=== PATIENT | female | born 1985 | race Caucasian/White ===

== ENCOUNTER 2023-12-07 13:26 | Emergency (ER) | payer OTHER, SELFPAY ==
[2023-12-07] VITALS (7 sets, daily range): BP systolic 108–127; BP diastolic 72–92; PULSE 66–83; RESP 12–18; TEMP 36.2; O2SAT 95–99; BMI 35.0
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
--- OUTSIDE RECORDS SUMMARY | 2023-12-07 14:35 | XMS_ITS | Clinical Summary ---
Author Name Unknown Organization [employer] [facility] Address [place], [place] [address] Care Team Providers Care Top Installer Name Role Phone Chantal Champagne MD Primary Care Provider Allergies No known active allergies Medications No known medications Active Problems Problem Noted Date Diagnosed Date Infertility counseling 03/25/2016 Comments Yes Family History Medical History Relation Name Comments Cancer-breast No Family History Cancer-colon No Family History Cancer-ovarian No Family History Diabetes No Family History Hyperlipidemia No Family History Hypertension No Family History Social History Tobacco Use Types Packs/Day Years Used Date Smoking Tobacco: Never Smokeless Tobacco: Never Tobacco Cessation:Counseling Given: Yes Alcohol Use Standard Drinks/Week Comments No 0 (1 standard drink = 0.6 oz pur e alcohol) Comments Yes Sex and Gender Information Value Date Recorded Sex Assigned at Not on file Gender Identity Not on file Sexual Orientation Not on file Obstetrics History Para Term AB IAB SAB Ectopic Multiple Livin g Live Births 1 Date Outcome GA Total Labor Labor/2nd/3rd Weight Sex Delivery Anes PTL Tammie A1 A5 Name Cl in Current Last Filed Vital Signs Vital Sign Reading Time Taken Comments Blood Pressure 108/66 05/23/2016 5:33 PM CDT Pulse 63 05/23/2016 5:33 PM CDT Temperature 36.8 ??C (98.3 ??F) 05/23/2016 5:33 PM CD T Respiratory Rate - - Oxygen Saturation 100% 05/23/2016 5:33 PM CDT Inhaled Oxygen Concentration - - Weight 71.4 kg (157 lb 6.4 oz) 05/23/2016 5:33 P M CDT Height 149.9 cm (4' 11) 05/23/2016 5:33 PM CDT Body Mass Index 31.79 05/23/2016 5:33 PM CDT Plan of Treatment Health Maintenance Due Date Last Done Comments COVID-19 vaccine series (#1) 1983 Tdap 1994 Hepatitis C screening for age 18-79 2001 Tetanus booster 2003 Depression screening for age 12+ 03/25/2017 03/25/2016 BMI (ht and wt on same day) for age 18+ 05/23/2017 05/23/2016, 03/25/2016, 12/10/2015 Influenza for age 9-49 07/31/2023 Pap test for age 21-65 01/28/2026 3, 01/28/2023, 03/11/2017, Additional history exists HIV for age 15-65 Completed 05/23/2016 Pneumococcal series for age 6-64 Aged Out No longer eligible based on patient's age to complete this topic Care Teams Top Installer Relationship Specialty Start Date End Date Chantal Champagne MD [address] [place] [address] PCP - General Family Practice 05/23/16
[2023-12-07 14:43] LABS: Basophils Absolute Auto 0.04 K/uL (0.00-0.30); Basophils Percent Auto 0.4 % (0.0-3.0); Eosinophils Absolute Auto 0.11 K/uL (0.00-0.50); Eosinophils Percent Auto 1.2 % (0.0-7.0); Hematocrit 38.5 % (33.0-51.0); Immature Granulocytes Abs Auto 0.08 K/uL (0.00-0.30); Immature Granulocytes Pct Auto 0.9 %; Lymphocytes Absolute Auto 3.35 K/uL (0.90-2.90); Lymphocytes Percent Auto 36.7 % (20-44); Mean Corpuscular HGB Conc 34 gm/dL (32-36); Mean Corpuscular Hemoglobin 31 pg (26-34); Mean Corpuscular Volume 93 fL (80-100); Neutrophils Absolute Auto 4.92 K/uL (1.7-7.0); Neutrophils Percent Auto 53.8 % (42.0-72.0); Platelet Count* 259 K/uL (140-440); Red Blood Count 4.16 m/uL (4.00-5.20); White Blood Count* 9.14 K/uL (4.50-11.00)
[2023-12-07 14:51] LABS: Albumin* 4.1 g/dL (3.3-5.0); Chloride* 105 mmol/L (96-114); Potassium* 3.7 mmol/L (3.6-5.1); Sodium* 137 mmol/L (135-149)
[2023-12-07 14:52] LABS: Slide Review Reflex No
[2023-12-07 14:53] LABS: Creatinine* 0.5 mg/dL (0.5-1.5); Est. Creatinine Clearance* 112.86; Estimated Glomerular Filt Rate 122 ml/min
[2023-12-07 14:54] LABS: Alanine Aminotransferase* 58 U/L (4-35); Alkaline Phosphatase* 123 U/L (40-150); Anion Gap 10 mEq/L (7-15); Aspartate Amino Transferase* 32 U/L (12-35); Blood Urea Nitrogen* 13 mg/dL (5-24); Carbon Dioxide* 22 mmol/L (20-32); Glucose* 116 mg/dL (60-115); Lipase* 96 U/L (23-300); Total Protein* 7.2 g/dL (6.0-8.3)
[2023-12-07 14:56] LABS: Bilirubin Total* < 0.1 mg/dL (0.1-1.5); C Reactive Protein* 1.3 mg/dL (0.5-1.0)
[2023-12-07 14:58] LABS: D Dimer Quantitative* < 0.27 ug/ml (0.00-0.50)
[2023-12-07 15:06] LABS: NT Pro B Type NatriureticPept* < 20 pg/mL; Troponin I* < 0.01 ng/mL (0.01-0.04)
== END 2023-12-07 16:00 | disposition home or self-care (01) ==
PROVIDERS: Emergency Provider Family Medicine
DX: R07.89 Other chest pain (principal)
CPT/HCPCS: 36415; 80048; 80076; 83690; 83880; 84484; 85025; 85379; 86140; 93005; 94761; 99284; T1013

== ENCOUNTER 2024-06-13 16:00 | Outpatient (CLI) | payer OTHER, SELFPAY ==
--- OUTSIDE RECORDS SUMMARY | 2024-06-17 23:54 | XMS_ITS | Clinical Summary ---
Author Organization [employer] [facility] Address [place], [place] [address] Care Team Providers Care Research And Insights Executive Name Role Phone Chantal Champagne MD Primary [...] HPV THIN PREP Routine 01/28/2023 7:00 PM LICENSED BONDSMAN ANTI HIV 1/2 Routine 05/23/2016 7:04 PM CDT Less than 8 weeks gestation of from Last 3 Months or Most Recently Relevant to Health Maintenance Results * HPV HIGH RISK (01/28/2023 7:00 PM LICENSED BONDSMAN) TYPE 16 Negative Negative 02/03/2023 5:40 PM LICENSED BONDSMAN [facility] TYPE 18 Negative Negative 02/03/2023 5:40 PM LICENSED BONDSMAN [facility] OTHER HIGH RISK TYPES Negative Negative 02/03/2023 5:40 PM LICENSED BONDSMAN [facility] Other (Cervical/Vagina l) 01/28/2023 7:00 PM LICENSED BONDSMAN 02/02/2023 7:19 AM LICENSED BONDSMAN Narrative [facility] - 02/03/2023 5:40 PM LICENSED BONDSMAN HPV types 16, 18, 31, 33, 35, 39, 45, 51, 52, 56, 58, 59, 66 and 68 DNA were undetectable or below the pre-set threshold. Methodology: [employer] Corey 4800 HPV Test Dai Landaverde BRUSH OR BROOM CUTTER MICROBIOLOGY [facility] [address] [place] [address], * ANTI HIV 1/2 (05/23/2016 7:04 PM CDT) HIV-1/HIV-2 ANTIBODY Non-Reacti ve Non-Reacti ve 05/24/2016 4:51 PM CDT [facility] Blood BLOOD SPECIMEN / Unknown Venipuncture / Unknown 05/23/2016 7:04 PM CDT 05/23/2016 7:04 PM CDT Narrative [facility] - 05/24/2016 4:51 PM CDT HIV-1 p24 and HIV-1/HIV-2 Ab not detected Chantal Champagne MD SEND OUTS [facility] [address] [place] [address], from Last 3 Months or Most Recently Relevant to Health Maintenance Care Teams Research And Insights Executive Relationship Specialty Start Date End Date Chantal Champagne MD [facility] [place] [address] PCP - General Family Practice 05/23/16
== END 2024-06-13 16:01 | disposition home or self-care (01) ==
LOC: AMB 06-17 23:53
PROVIDERS: Visit Provider Family Medicine
DX: S59.912A Unspecified injury of left forearm, initial encounter (principal); V43.52XA Car driver injured in collision with other type car in traffic accident, initial encounter; Y92.414 Local residential or business street as the place of occurrence of the external cause
CPT/HCPCS: A0998

== ENCOUNTER 2024-06-13 17:30 | Emergency (ER) | payer OTHER, SELFPAY ==
[2024-06-13 17:46] VITALS: BP 118/72; PULSE 82; RESP 18; TEMP 37.1; O2SAT 94; BMI 29.1
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
[2024-06-13] MEDS: IBUPROFEN 200 MG TABLET 400 MG PO (19:40)
--- OUTSIDE RECORDS SUMMARY | 2024-06-13 19:42 | XMS_ITS | Clinical Summary ---
Author Organization [employer] [facility] Address [place], [place] [address] Care Team Providers Care Printer Small Print Shop Name Role Phone Chantal Champagne MD Primary [...] Outcome GA Total Labor Labor/2nd/3rd Weight Sex Type Anes PTL Tammie A1 A5 Name Clin Current Last Filed Vital Signs Vital Sign [...] Health Maintenance Due Date Last Done Comments Tdap 1994 Hepatitis C screening for age 18-79 2001 Tetanus booster 2003 Depression screening for age 12+ 03/25/2017 03/25/2016 BMI (ht and wt on same day) for age 18+ 05/23/2017 05/23/2016, 03/25/2016, 12/10/2015 COVID-19 vaccine series (2022- season) 2023 Influenza for age 9-49 07/31/2024 Pap test for age 21-65 01/28/2026 , 01/28/2023, 03/11/2017, Additional history exists HIV for age 15-65 Completed 05/23/2016 Pneumococcal series for age 6-64 Aged Out No longer eligible based on patient's age to complete this topic Procedures Procedure Name Priority Date/Time Associated Diagnosis Comments HPV THIN PREP Routine 01/28/2023 7:00 PM 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 WORKER ANTI HIV 1/2 Routine 05/23/2016 7:04 PM CDT Less than 8 weeks gestation of from Last 3 Months or Most Recently Relevant to Health Maintenance Results * HPV HIGH RISK (01/28/2023 7:00 PM MARSHMALLOW MACHINE WORKER) TYPE 16 Negative Negative 02/03/2023 5:40 PM MARSHMALLOW MACHINE WORKER [facility] TYPE 18 Negative Negative 02/03/2023 5:40 PM MARSHMALLOW MACHINE WORKER [facility] OTHER HIGH RISK TYPES Negative Negative 02/03/2023 5:40 PM MARSHMALLOW MACHINE WORKER [facility] Other (Cervical/Vagina l) 01/28/2023 7:00 PM MARSHMALLOW MACHINE WORKER 02/02/2023 7:19 AM MARSHMALLOW MACHINE WORKER Narrative [facility] - 02/03/2023 5:40 PM MARSHMALLOW MACHINE WORKER HPV types 16, 18, 31, 33, 35, 39, 45, 51, 52, 56, 58, 59, 66 and 68 DNA were undetectable or below the pre-set threshold. Methodology: Tap[employer] Corey 4800 HPV Test Dai Landaverde CLIENT SERVICES COORDINATOR MICROBIOLOGY [facility] [address] [place] [address], * ANTI HIV 1/2 (05/23/2016 7:04 PM CDT) HIV-1/HIV-2 ANTIBODY Non-Reacti ve Non-Reacti ve 05/24/2016 4:51 PM CDT [facility] Blood BLOOD SPECIMEN / Unknown Venipuncture / Unknown 05/23/2016 7:04 PM CDT 05/23/2016 7:04 PM CDT Narrative [facility] - 05/24/2016 4:51 PM CDT HIV-1 p24 and HIV-1/HIV-2 Ab not detected Chantal Champagne MD SEND OUTS [facility] [address] [place] [address], from Last 3 Months or Most Recently Relevant to Health Maintenance Care Teams Printer Small Print Shop Relationship Specialty Start Date End Date Chantal Champagne MD [facility] [place] [address] PCP - General Family Practice 05/23/16
[2024-06-13 20:00] VITALS: BP 124/74; PULSE 60; RESP 16; O2SAT 98
== END 2024-06-13 21:51 | disposition home or self-care (01) ==
PROVIDERS: Emergency Provider Family Medicine
DX: M54.2 Cervicalgia (principal); S50.812A Abrasion of left forearm, initial encounter; V43.52XA Car driver injured in collision with other type car in traffic accident, initial encounter
CPT/HCPCS: 71101; 73030; 73090; 99284; A9270

== ENCOUNTER 2024-11-23 19:15 | Emergency (ER) | payer OTHER, SELFPAY ==
[2024-11-23 19:21] VITALS: BP 114/72; PULSE 76; RESP 16; TEMP 36.6; O2SAT 97; BMI 32.6
--- NOTE | 2024-11-23 19:53 | ED_ITS ---
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 Approximately 30 minutes ago she developed bilateral facial altered sensation, this was coupled with bilateral hand and feet se nsation also. She has had a headache on off for a while associated with this. And the headache seems a little bit worse today. She presents with her daughter and a friend who does the interpretation for us. Unfortunately she is under a lot of stress, as her left both her and her daughter 2 weeks ago. 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 Denies any suicidality. No history of any hypertension, hyperlipidemia, early in the family, Related Data Home Medications ?Medication ?Instructions ?Recorded ?Confirmed No Known Home Medications 06/13/24 11/23/24 Allergies Allergy/AdvReac Type Severity Reaction Status Date / Time No Known Drug Allergies Allergy Verified 11/23/24 19:32 Review of Systems Status of ROS: Reports: 10 or more systems reviewed and unremarkable except as noted in History and below [facility] Social History Smoking Status: Never smoker How often do you have a drink containing alcohol: never AUDIT-C Alcohol total score: 0 Non-prescribed substance use: denies use service: No Exam Narrative: Exam Narrative: On examination in the room, she is in no apparent distress, her pupils are equal round reactive to light, TMs are normal, visual oliver are normal on testing, cranial nerves 3-12 are normal oropharynx is normal she has good sensation roll her perioral region, even though she tells me that she can not feel as well. Neck is supple, carotid upstrokes are equal JVP is flat, no lymphadenopathy, chest is good air entry bilaterally no wheezing crackles noted heart sounds are normal fingers nose testing is normal, she is right-hand dominant, fine motor movements, distal and proximal muscle strength, or tested in normal her reflexes are normal in her upper lower extremities and sensation is normal bilaterally. Pulses are normal her muscle bulk is normal she is able to walk normally in tandem walking is assessed and normal. Const: Vital Signs, click to edit/add: Vital Signs - 24 hr 11/23/24 19:21 Temperature 97.9 F Pulse Rate [Pulse Oximeter] 76 Respiratory Rate 16 Blood Pressure [Ri ght Upper Arm] 114/72 Pulse Oximetry 97 Oxygen Delivery Me thod Room Air Documenting provider has reviewed patient's vital signs: yes Course Course ED Course: Head CT and CTA of the neck head and neck, showed no acute abnormalities, her symptoms remain the same, I think with the bilateral symptoms, this is more likely stress related, or anxiety. I see no evidence of a neurological phenomenon given the fact she is under increased stress, I think that is what is causing the issue here. I explained to her that here tonight, we have ruled out bad things, and she should follow up with primary care or [facility], for further management of her stress, around her leaving her. She is not suicidal, and otherwise feels good common feels comfortable with this plan. Vital Signs Vital signs: Initial Vital Signs Temperature 97.9 F 11/23/24 19:21 Temperature Source Temporal Artery Scan 11/23/24 19:21 Pulse Rate 76 11/23/24 19:21 Respiratory Rate 16 11/23/24 19:21 Blood Pressure 114/72 11/23/24 19:21 Blood Pressure Mean 86 11/23/24 19:21 Blood Pressure Position Sitting 11/23/24 19:21 Pulse Oximetry 97 11/23/24 19:21 Oxygen Delivery Method Room Air 11/23/24 19:21 Vital Signs Temperature 97.9 F 11/23/24 19:21 Pulse Rate 76 11/23/24 19:21 Respiratory Rate 16 11/23/24 19:21 Blood Pressure 114/72 11/23/24 19:21 Pulse Oximetry 97 11/23/24 19:21 Oxygen Delivery Method Room Air 11/23/24 19:21 Temperature 97.9 F 11/23/24 19:21 Pulse Rate 76 11/23/24 19:21 Respiratory Rate 16 11/23/24 19:21 Blood Pressure 114/72 11/23/24 19:21 Pulse Oximetry 97 11/23/24 19:21 Oxygen Delivery Method Room Air 11/23/24 19:21 MDM - Neuro Symptoms/Deficit Medical Records Attestation: I reviewed the patient's medical records. Lab Data Attestation: I reviewed the patient's lab results. Imaging Data CT scan - head: Attestation: I have reviewed the pertinent imaging results. Radiologist's impression: [address] [address] Diagnostic Imaging Report Patient: Marianne Hernandez MR#: [id number] : 1985 Acct:[id number] Loc: ED Service Date: 11/23/[address]: Ordering Physician: Vignesh Bain M.D. Date of Service: 11/23/24 Procedure(s): CT head/brain wo con Accession Number(s): [id number] cc: Provider,Not a Local; Vignesh Bain M.D.~ For Patients: As a result of the Cures Act, medical imaging exams and procedure reports are released immediately into your electronic medical record. You may view this report before your referring provider. If you have questions, please contact your health care provider. INDICATION: Headaches. TECHNIQUE: CT of the head without contrast. Coronal and sagittal reformats are included. COMPARISON: None. FINDINGS: No CT evidence of acute cortical infarct. No loss of armas white matter differentiation. No hyperdense vessels to suggest intracranial thrombus. No acute intracranial hemorrhage. No mass effect or midline shift. No hydrocephalus. Posterior fossa javier cisterna magna. White matter is within normal limits for age. No acute osseous abnormalities. Mastoid air cells and paranasal sinuses are clear. Normal soft tissues. IMPRESSION: IMPRESSION:1. No CT evidence of acute cortical infarct. No acute intracranial hemorrhage. No other acute intracranial findings. Please note that all CT scans at this facility use dose modulation, iterative reconstruction, and/or weight-based dosing when appropriate to reduce radiation dose to as low as reasonably achievable. Dictated by Humberto Nuñez MD @ 11/23/2024 8:55:09 PM (Electronically Signed) Patient: MARIANNE TRUJILLO Facility:?[facility] Patient ID:?[id number] Site Patient ID:?[id number]. Site :?1985 Study:?CT-Head Angio CTA HEAD W/ISOVUE 370 95CC-11/23/2024 8:37:39 PM Ordering Physician:Rachel Medellin Preliminary Report: FINDINGS CTA head: No proximal or vessel occlusion or flow-limiting stenosis. CTA neck: No flow limiting stenosis. No evidence of dissection. Read by:?Humberto Nuñez MD @11/23/2024 8:59:09 PM Discharge Plan Discharge Clinical Impression: Numbness and tingling in both hands, Stress and adjustment reaction Patient Disposition: Home w/ Parent or Adult Condition: Stable Instructions: Grief and Loss (ED) Additional Instructions: Home rest, follow-up with [facility] for your stress and other issues. Return as needed, her CT scans are all clear. No evidence of stroke Activity Level: Light activity Prescriptions: No Action No Known Home Medications Follow Up/Referrals: Provider,Not a Local [Primary Care Provider] - Stand Alone Forms: [facility] Info Instructions
--- NOTE | 2024-11-23 19:54 | CRLHL7_ITS ---
For Patients: As a result of the Century Cures Act, medical imaging exams and procedure reports are released immediately into your electronic medical record. You may view this report before your referring provider. If you have questions, please contact your health care provider. INDICATION: Severe headache. TECHNIQUE: CTA neck with contrast bolus tracking, 3D angiographic rendering using maximum intensity projection (MIP) and images permanently archived. FINDINGS: There is no significant carotid artery stenosis or dissection. There is no significant vertebral artery stenosis or dissection. The soft tissues of the neck are within normal limits. The cervical spine is in normal alignment. IMPRESSION: Unremarkable neck CTA. Please note that all CT scans at this facility use dose modulation, iterative reconstruction, and/or weight-based dosing when appropriate to reduce radiation dose to as low as reasonably achievable. Dictated by Bakari Mckinnon MD @ 11/24/2024 7:02:23 AM (Electronically Signed)
--- NOTE | 2024-11-23 19:54 | CRLHL7_ITS ---
For Patients: As a result of the Century Cures Act, medical imaging exams and procedure reports are released immediately into your electronic medical record. You may view this report before your referring provider. If you have questions, please contact your health care provider. INDICATION: Severe headache. TECHNIQUE: CTA head with contrast bolus tracking, 3D angiographic rendering using maximum intensity projection (MIP) and images permanently archived. FINDINGS: There is normal opacification of the intracranial vasculature. There is no large vessel occlusion. No aneurysm is identified. IMPRESSION: Unremarkable head CTA. Please note that all CT scans at this facility use dose modulation, iterative reconstruction, and/or weight-based dosing when appropriate to reduce radiation dose to as low as reasonably achievable. Dictated by Bakari Mckinnon MD @ 11/24/2024 6:56:07 AM (Electronically Signed)
== END 2024-11-23 22:03 | disposition home or self-care (01) ==
PROVIDERS: Emergency Provider Family Medicine
DX: R20.0 Anesthesia of skin (principal); F43.9 Reaction to severe stress, unspecified
CPT/HCPCS: 70450; 70496; 70498; 99283; 99284; Q9967

== ENCOUNTER 2025-03-09 08:18 | Outpatient (CLI) | payer OTHER, SELFPAY ==
--- NOTE | 2025-03-09 08:15 | CRLHL7_ITS ---
For Patients: As a result of the Century Cures Act, medical imaging exams and procedure reports are released immediately into your electronic medical record. You may view this report before your referring provider. If you have questions, please contact your health care provider. INDICATION: BILATERAL SCREENING MAMMOGRAM, ASYMPTOMATIC 39 Y/O FEMALE COMPARISON: 02/02/23 TECHNIQUE: CC and MLO views were obtained. These mammographic images have been obtained using full-field digital technique. These mammographic images were interpreted with the benefit of computer aided detection and tomosynthesis. BREAST COMPOSITION: The breasts are heterogeneously dense, which may obscure small masses. FINDINGS: No suspicious findings. ASSESSMENT: BI-RADS 1 Negative RECOMMENDATION: Annual screening mammogram. A lay language report of this examination will be provided to the patient. Dictated by: Harris Hill MD @ 03/09/2025 12:15:10 (Electronically Signed)
== END 2025-03-09 08:19 | disposition home or self-care (01) ==
LOC: MAMMO 08:19
PROVIDERS: Visit Provider Family Medicine
DX: Z12.31 Encounter for screening mammogram for malignant neoplasm of breast (principal); R92.333 Mammographic heterogeneous density, bilateral breasts
CPT/HCPCS: 77063; 77067; T1013